=== PATIENT | male | born 1980 | race Caucasian/White ===

== ENCOUNTER 2024-12-11 09:02 | Emergency (ER) | payer BC, MEDICAID ==
[~2024-12-11] VITALS: Ht 175.3 cm; Wt 104.0 kg
[2024-12-11 09:09] VITALS: O2SAT 98
[2024-12-11] MEDS ORDERED: CELE-116 MT (09:35)
[2024-12-11] MEDS ORDERED: METH4TAB95 MT (09:35)
[2024-12-11] MEDS ORDERED: CYCL10TA21 MT (09:35)
[2024-12-11] MEDS: ACETAMINOPHEN 325MG TABLET PO ONE (09:58)
[2024-12-11 09:59] VITALS: BP 151/90; PULSE 88; RESP 20; TEMP 36.8; O2SAT 98
[2024-12-11] MEDS: KETOROLAC 30MG/ML VIAL IM ONE (09:59)
== END 2024-12-11 09:59 | disposition home or self-care (01) ==
LOC: ER 09:03
DX: M54.40 Lumbago with sciatica, unspecified side (principal); Z79.899 Other long term (current) drug therapy; Z79.1 Long term (current) use of non-steroidal anti-inflammatories (NSAID)
CPT/HCPCS: 99283; 96372; J1885